=== PATIENT | female | born 1975 | race African-American/Black ===

== ENCOUNTER 2017-11-11 00:45 | Emergency (ER) | payer MEDICAID ==
[~2017-11-11] VITALS: Ht 175.3 cm; Wt 83.9 kg
--- NOTE | 2017-11-11 00:45 | NUR ---
PT BB SELF C/O COUGH/CONGESTION X1 WEEK. NO PAIN NOTED BUT WITH COUGH/CONGESTION AND WHEN AUSCULTATED HEARD RONCHI/CRACKLES. VSS NAD. WILL CONTINUE TO MONITOR FOR ANY CHANGES
--- NOTE | 2017-11-11 01:58 | NUR ---
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
[2017-11-11 02:32] VITALS: BP 158/83
== END 2017-11-11 02:33 | disposition home or self-care (01) ==
LOC: ER 00:56
DX: R05 Cough (principal); J45.909 Unspecified asthma, uncomplicated
CPT/HCPCS: 71045; 99283; A4606; Z7610